=== PATIENT | male | born 1995 | race Caucasian/White ===

== ENCOUNTER 2018-07-18 12:08 | Emergency (ER) | payer SELFPAY | END 2018-07-18 13:05 | disposition home or self-care (01) | LOC: ERS 12:08 | DX: H60.92 Unspecified otitis externa, left ear (principal); F17.210 Nicotine dependence, cigarettes, uncomplicated | CPT/HCPCS: 99281 ==

== ENCOUNTER 2019-08-05 09:44 | Emergency (ER) | payer SELFPAY | END 2019-08-05 11:46 | disposition home or self-care (01) | LOC: ERS 09:44 | DX: R11.11 Vomiting without nausea (principal); R19.7 Diarrhea, unspecified; F17.210 Nicotine dependence, cigarettes, uncomplicated; R10.819 Abdominal tenderness, unspecified site | CPT/HCPCS: 99283 ==

== ENCOUNTER 2020-01-26 06:31 | Emergency (ER) | payer SELFPAY | END 2020-01-26 07:17 | disposition home or self-care (01) | LOC: ERS 06:31 | DX: B35.6 Tinea cruris (principal); F17.210 Nicotine dependence, cigarettes, uncomplicated | CPT/HCPCS: 99282 ==

== ENCOUNTER 2022-08-27 08:09 | Emergency (ER) | payer OTHER, SELFPAY ==
[2022-08-27] MEDS ORDERED: Ketorolac Tromethamine 30 MG/ML VIAL ONE (09:14)
[2022-08-27] MEDS ORDERED: Dexamethasone 10 MG/ML VIAL ONE (09:14)
[2022-08-27] MEDS ORDERED: Metoclopramide HCl 10 MG/2 ML VIAL ONE (09:14)
== END 2022-08-27 10:30 | disposition home or self-care (01) ==
LOC: ERS 08:09
DX: G43.909 Migraine, unspecified, not intractable, without status migrainosus (principal); B34.9 Viral infection, unspecified; F17.210 Nicotine dependence, cigarettes, uncomplicated
CPT/HCPCS: 96365; 96375; J1100; J1885; J2765

== ENCOUNTER 2024-02-29 21:55 | Emergency (ER) | payer BC, SELFPAY ==
[2024-02-29] MEDS ORDERED: HYDROcodone/Acetaminophen 5/325 mg Tablet ONE (22:28)
== END 2024-03-01 00:15 | disposition home or self-care (01) ==
LOC: ERS 21:55
DX: S62.316A Displaced fracture of base of fifth metacarpal bone, right hand, initial encounter for closed fracture (principal); F17.210 Nicotine dependence, cigarettes, uncomplicated; W17.89XA Other fall from one level to another, initial encounter